=== PATIENT | male | born 1955 | race Caucasian/White ===

== ENCOUNTER → 2023-10-07 08:44 | Outpatient (REF) | payer OTHER, SELFPAY ==
[2023-10-07 12:55] LABS: % Basophils 1.1 % (0-2); % Eosinophils 5.6 % (0-6); % Immature Granulocytes 0.3 % (0-0.5); % Lymphocytes 23.9 % (20.5-51.1); % Monocytes 12.4 % (1.7-9.3); % Neutrophils 56.7 % (42.2-75.2); Absolute Basophils 0.1 10^3/uL (0-0.2); Absolute Eosinophils 0.4 10^3/uL (0-0.7); Absolute Lymphocytes 1.6 10^3/uL (1.2-3.4); Absolute Monocytes 0.8 10^3/uL (0.1-0.6); Absolute Neutrophils 3.8 10^3/uL (1.4-6.5); Hemoglobin 12.8 g/dL (13.0-18.0); Mean Corp Hgb Conc. 32.8 g/dL (33.0-37.0); Mean Corpuscular Volume 91.3 fL (80.0-94.0); Mean Platelet Volume 10.1 fL (7.4-10.4); Nucleated Red Blood Cells % 0 % (-); Platelet Count 301 10^3/uL (130-400); Red Blood Cell Count 4.27 10^6/uL (4.70-6.10); Red Cell Dist. Width 15.2 % (11.5-14.5); White Blood Cell Count 6.6 10^3/uL (4.8-10.8)
[2023-10-07 13:44] LABS: Erythrocyte Sed Rate 9 mm/hour (0-20)
[2023-10-07 13:49] LABS: ALT (SGPT) 24 U/L (0-50); AST (SGOT) 27 U/L (17-59); Albumin 4.2 g/dl (3.5-5.0); Alkaline Phosphatase 87 U/L (38-126); Blood Urea Nitrogen 26 mg/dl (9-20); Calcium 9.1 mg/dl (8.4-10.2); Carbon Dioxide 27 mmol/L (22-30); Chloride 105 mmol/L (98-107); Glucose 89 mg/dl (70-99); Potassium 4.9 mmol/L (3.5-5.1); Sodium 137 mmol/L (135-145); Total Bilirubin 0.5 mg/dl (0.2-1.3); Total Protein 6.9 g/dl (6.3-8.2); eGFR > 60.00
[2023-10-08 14:49] LABS: Rheumatoid Agglutinin Positive (<10 IU)
[2023-10-08 16:10] LABS: Rheumatoid Agg. Semi-quant 8 IU
[2023-10-09 14:46] LABS: Amphetamine, Urine Negative ng/mL (Cutoff 300); Barbiturates, Urine Negative ng/mL (Cutoff 200); Benzodiazepines, Urine Negative ng/mL (Cutoff 200); Buprenorphine, Urine Negative ng/mL (Cutoff 5); Carisoprodol, Urine Negative ng/mL (Cutoff 100); Cocaine, Urine Negative ng/mL (Cutoff 150); Creatinine, Urine 137.7 mg/dL (20.0-400.0); Ethyl Glucuronide, Urine Negative ng/mL (Cutoff 500); Fentanyl, Urine Negative ng/mL (Cutoff 1); Marijuana, Urine Negative ng/mL (Cutoff 50); Meperidine, Urine Negative ng/mL (Cutoff 200); Methadone, Urine Negative ng/mL (Cutoff 150); Opiates, Urine PresumptivePOS ng/mL (Cutoff 300); Oxycodone/Oxymorphone, Urine Negative ng/mL (Cutoff 100); PCP (Phencyclidine), Urine Negative ng/mL (Cutoff 25); Propoxyphene, Urine Negative ng/mL (Cutoff 300); Tapentadol, Urine Negative ng/mL (Cutoff 200); Tramadol, Urine Negative ng/mL (Cutoff 100); Zolpidem, Urine PresumptivePOS ng/mL (Cutoff 20)
[2023-10-10 03:54] LABS: CCP Antibody IgG/IgA >250 Units (0-19)
[2023-10-11 11:34] LABS: Zolpidem, Urine 34 ng/mL
[2023-10-11 11:43] LABS: 6-Acetylmorphine, Urine <10 ng/mL; Codeine, Urine <20 ng/mL; Hydrocodone, Urine 3802 ng/mL; Hydromorphone, Urine 41 ng/mL; Morphine, Urine <20 ng/mL; Norhydrocodone, Urine >4000 ng/mL; Noroxycodone, Urine <20 ng/mL; Noroxymorphone, Urine <20 ng/mL; Oxycodone, Urine <20 ng/mL; Oxymorphone, Urine <20 ng/mL
== END ==
LOC: HWLAB 08:44
PROVIDERS: ATTENDING PHYSICIAN Internal Medicine Rheumatology; FAMILY PHYSICIAN Family Medicine
DX: G89.4 Chronic pain syndrome (principal); I89.0 Lymphedema, not elsewhere classified; M06.80 Other specified rheumatoid arthritis, unspecified site; M06.9 Rheumatoid arthritis, unspecified; M51.36 Other intervertebral disc degeneration, lumbar region
CPT/HCPCS: 36415; 80053; 80307; 80361; 80365; 80368; 85025; 85652; 86140; 86200; 86430; 86431

== ENCOUNTER 2024-03-23 09:45 | Emergency (ER) | payer OTHER, SELFPAY ==
[2024-03-23 09:50] VITALS: BP 157/78
--- NOTE | 2024-03-23 10:21 | ED.GENMED ---
History of Present Illness
General
Chief Complaint: Musculo-Skeletal Complaint
Source: patient
Exam Limitations: none
Time Seen by Provider: 03/23/24 10:02
Nursing documentation reviewed up to this point in time: agreed with
History of Present Illness
History of Present Illness:
69-year-old male with past medical history of rheumatoid arthritis currently taking methotrexate and daily prednisone 4 mg, previous stroke asthma hypertension hyperlipidemia presenting to the emergency department today with concerns of ongoing
left-sided wrist discomfort and swelling over the past 2 weeks. He claims that he had a ground-level fall and hit his left wrist. He was seen at an urgent care and had x-rays 2 weeks ago and was diagnosed with a sprain was given a splint. He
claims that pain has been ongoing which prompted him to come to the ER. He has been taking Motrin at home without relief. Denies any chest pain shortness of breath fevers significant redness or warmth.
Past History
Past History
ED Past Medical History: Asthma, COPD, CVA, HTN, Hypercholesterolemia and Other (Rheumatoid arthritis, recurrent cellulitis, osteoarthritis, shingles, chronic back pain, migraines, Sleep apnea)
ED Past Surgical History: Appendectomy, Orthopedic (Carpal tunnel right) and Tonsilectomy
Social History
Tobacco: Former smoker
Alcohol: Occasional
Drug: None
Personal:
Living: with family (Lives with Girlfriend)
Employment: Employed
Family History
Family History: Other (reviewed and non-contributory)
Review of Systems
Review of Systems
Allergies reviewed?: Yes
All Other Systems: ROS reviewed and negative except as documented in HPI and ROS
Phy Exam
Physical Exam
Physical Exam:
GENERAL: Alert , in no apparent distress
EYE: pupils equal and reactive
NECK: Supple, no significant adenopathy.
ENT: o/p clr, mmm.
CARDIAC: Regular rate and rhythm .
LUNGS: Clear breath sounds bilaterally, no acute respiratory distress, no wheezes/rales/rhonchi
ABDOMEN: Soft, without focal tenderness, no r/g, no cvat
NEUROLOGICAL: Alert and oriented, no focal neuro deficits
SKIN: Warm and dry, skin intact.
MUSCULOSKELETAL: Mild swelling to the patient's left wrist mainly on the dorsal aspect of the distal ulnar region. Minimal tenderness with palpation throughout the hand and finger able to medical imaging technologist. Increased discomfort with sitting's test. No
significant redness or warmth is apparent. Does have good range of motion of the wrist but does have discomfort throughout the range of motion. No tenderness throughout the remainder of the forearm or elbow., well perfused.
PSYCH: Normal and appropriate interaction.
Course
Orders/Labs/Results
Orders:
Orders
03/23/24 10:11
CR Wrist - Left Min 3 Views Urgent
Comment:
Reason For Exam: wrist pain 2 weeks ago fall
03/23/24 10:19
Ketorolac [Toradol] 30 mg IM NOW STA
03/23/24 11:18
Prednisone [Deltasone] 50 mg PO NOW STA
Vital Signs
Initial and Last Documented VS:
Initial Vital Signs
Temp Pulse Resp BP Pulse Ox
97.7 F 71 20 157/78 97
03/23/24 09:50 03/23/24 09:50 03/23/24 09:50 03/23/24 09:50 03/23/24 09:50
Last Documented Vital Signs
Temp Pulse Resp BP Pulse Ox
97.7 F 71 20 157/78 97
03/23/24 09:50 03/23/24 09:50 03/23/24 09:50 03/23/24 09:50 03/23/24 09:50
MDM/Problems Addressed
MDM/Problems Addressed:
69-year-old male presenting to the emergency ongoing discomfort to the left wrist after falling and hitting his wrist 2 weeks ago. He had x-rays at an urgent care diagnosed with a sprain. He has been icing elevating and taking Motrin without
relief. Today he does have tenderness to the wrist and distal ulnar forearm. No tenderness to the anatomical snuffbox no tenderness about the hand or fingers. Able to medical imaging technologist does have good range of motion of the wrist septic arthritis very unlikely
without significant redness or warmth good range of motion as well as no systemic symptoms or significant worsening symptoms over the past 2 weeks. I x-ray with significant arthritis but no evidence of acute fracture. Patient was written for
steroid pack help with inflammatory possibility otherwise advised for close outpatient follow-up return precautions given.
*Critical Care Note
Total Time (30-74mins, 75-104mins- exclusive of procedures): Not Applicable
ED Attending Note
-
Portions of this chart may have been created with voice recognition software.� Occasional wrong word or��sound alike� substitutions may have occurred due to the inherent limitations of voice recognition software.
Discharge Plan
Departure
Patient Disposition: Home (Routine Discharge)
Date of Disposition: 03/23/24
Time of Disposition: 11:18
Patient with high blood pressure during this ER visit?: No
Condition: Good
Covid-19: Not Applicable
Discharge Problem:
Acute wrist pain
Instructions: Muscle and Bone Pain (DC)
Prescriptions:
New
prednisone 50 mg tablet
50 mg PO DAILY 4 Days Qty: 4 0RF
hydrocodone-acetaminophen 5-325 mg tablet
1 tab PO Q8H PRN (Reason: Pain) Qty: 7 0RF
No Action
folic acid 1 MG tablet
1 mg PO DAILY
zolpidem 10 MG tablet
10 mg PO HS
Patient Comments:
03/25/2023: last filled 02/23/23, 90 tabs for 90 days from [facility]
amlodipine 5 MG tablet
5 mg PO DAILY Qty: 30 3RF
diphenhydramine HCl [Banophen] 25 MG capsule
25 mg PO HSPRN PRN (Reason: bug bites)
prednisone 1 MG tablet
4 mg PO DAILY
Epidiolex 1 UNIT solution
1 unit inhalation BIDPRN PRN (Reason: back pain)
hydrocodone-acetaminophen 10-325 mg tablet
1 tab PO Q6H PRN (Reason: moderate pain)
Patient Comments:
03/25/2023: last filled 03/10/23, 120 tabs for 30 days from [facility]
losartan 100 mg tablet
100 mg PO DAILY
atorvastatin 40 MG tablet
40 mg PO DAILY
methotrexate sodium 2.5 MG tablet
2.5 mg PO SUWEFR
Rx Instructions:
after the course of antibiotics is done
white petrolatum [Hydrophor] 42 % Ointment
1 applic topical DAILY Qty: 454 0RF
Referrals:
Kenny Berumen MD [Family Provider] -
Activity Restrictions/Additional Instructions:
You came to the emergency department today with concerns of ongoing left-sided wrist discomfort. This could be an ongoing sprain or secondary to your rheumatoid arthritis. Please prednisone 50 mg once a day for the next 4 days and you can use the
stronger pain medication as needed. Return to the emergency department for any worsening, new or concerning symptoms. Please also seek physical therapy assessment.
Interventions
Interventions:
ED-Musculoskeletal Assessment Last Done: 03/23/24 11:12
Discharge Date and Time
Print Language: GUYANESE
[2024-03-23] MEDS: TORADOL 30 MG IM (10:28)
[2024-03-23] MEDS: DELTASONE 50 MG PO (11:24)
== END 2024-03-23 11:44 | disposition home or self-care (01) ==
LOC: EMR 09:45
PROVIDERS: EMERGENCY PHYSICIAN Emergency Medicine; FAMILY PHYSICIAN Family Medicine
DX: M25.532 Pain in left wrist (principal); J44.89 Other specified chronic obstructive pulmonary disease; I10 Essential (primary) hypertension; E78.00 Pure hypercholesterolemia, unspecified; G47.30 Sleep apnea, unspecified; M06.9 Rheumatoid arthritis, unspecified; Z79.631 Long term (current) use of antimetabolite agent; Z86.73 Personal history of transient ischemic attack (TIA), and cerebral infarction without residual deficits; Z87.891 Personal history of nicotine dependence; Z90.49 Acquired absence of other specified parts of digestive tract
CPT/HCPCS: 99283; 96372; 73110

== ENCOUNTER → 2024-05-03 07:54 | Outpatient (REF) | payer OTHER, SELFPAY ==
[2024-05-03 09:59] LABS: % Basophils 0.5 % (0-2); % Eosinophils 2.9 % (0-6); % Immature Granulocytes 0.3 % (0-0.5); % Lymphocytes 16.1 % (20.5-51.1); % Monocytes 11.7 % (1.7-9.3); % Neutrophils 68.5 % (42.2-75.2); Absolute Basophils 0.1 10^3/uL (0-0.2); Absolute Eosinophils 0.3 10^3/uL (0-0.7); Absolute Lymphocytes 1.5 10^3/uL (1.2-3.4); Absolute Monocytes 1.1 10^3/uL (0.1-0.6); Absolute Neutrophils 6.4 10^3/uL (1.4-6.5); Hematocrit 36.1 % (39.0-52.0); Hemoglobin 11.9 g/dL (13.0-18.0); Mean Corpuscular Hgb 29.4 pg (27.0-31.0); Mean Corpuscular Volume 89.1 fL (80.0-94.0); Mean Platelet Volume 9.6 fL (7.4-10.4); Nucleated Red Blood Cells % 0 % (-); Platelet Count 294 10^3/uL (130-400); Red Blood Cell Count 4.05 10^6/uL (4.70-6.10); Red Cell Dist. Width 14.4 % (11.5-14.5); White Blood Cell Count 9.4 10^3/uL (4.8-10.8)
[2024-05-03 10:50] LABS: ALT (SGPT) 20 U/L (0-50); AST (SGOT) 24 U/L (17-59); Alkaline Phosphatase 85 U/L (38-126); Blood Urea Nitrogen 24 mg/dl (9-20); Calcium 9.2 mg/dl (8.4-10.2); Carbon Dioxide 25 mmol/L (22-30); Chloride 105 mmol/L (98-107); Glucose 96 mg/dl (70-99); HDL Cholesterol 66 mg/dl; LDL Cholesterol, Calculated 60 mg/dl; Potassium 4.4 mmol/L (3.5-5.1); Sodium 140 mmol/L (135-145); Total Bilirubin 0.6 mg/dl (0.2-1.3); Total Cholesterol 137 mg/dl (50-199); Total Protein 6.6 g/dl (6.3-8.2); Triglyceride 55 mg/dl (10-149); Very Low Density Lipoprotein 11 mg/dl (0-30); eGFR > 60.00
== END ==
LOC: HWLAB 07:54
PROVIDERS: ATTENDING PHYSICIAN Physician Assistant Medical; FAMILY PHYSICIAN Physician Assistant
DX: Z12.5 Encounter for screening for malignant neoplasm of prostate (principal); E78.5 Hyperlipidemia, unspecified; I10 Essential (primary) hypertension
CPT/HCPCS: 36415; 80053; 80061; 85025; G0103

== ENCOUNTER → 2024-05-09 11:26 | Outpatient (REF) | payer OTHER, SELFPAY ==
[2024-05-09 15:40] LABS: % Basophils 0.3 % (0-2); % Eosinophils 1.3 % (0-6); % Immature Granulocytes 0.4 % (0-0.5); % Lymphocytes 11.1 % (20.5-51.1); % Monocytes 8.5 % (1.7-9.3); % Neutrophils 78.4 % (42.2-75.2); Absolute Eosinophils 0.1 10^3/uL (0-0.7); Absolute Lymphocytes 1.1 10^3/uL (1.2-3.4); Absolute Monocytes 0.8 10^3/uL (0.1-0.6); Absolute Neutrophils 7.6 10^3/uL (1.4-6.5); Hematocrit 37.7 % (39.0-52.0); Hemoglobin 12.4 g/dL (13.0-18.0); Mean Corp Hgb Conc. 32.9 g/dL (33.0-37.0); Mean Corpuscular Hgb 29.3 pg (27.0-31.0); Mean Corpuscular Volume 89.1 fL (80.0-94.0); Mean Platelet Volume 9.7 fL (7.4-10.4); Nucleated Red Blood Cells % 0 % (-); Platelet Count 310 10^3/uL (130-400); Red Blood Cell Count 4.23 10^6/uL (4.70-6.10); Red Cell Dist. Width 14.6 % (11.5-14.5); White Blood Cell Count 9.7 10^3/uL (4.8-10.8)
[2024-05-09 15:47] LABS: Iron 77 ug/dl (49-181)
[2024-05-09 15:57] LABS: Percent Saturation 26 % (20-50); Total Iron Binding Capacity 292 ug/dl (261-462)
[2024-05-09 16:23] LABS: Ferritin 87.9 ng/ml (17.9-464.0)
[2024-05-09 16:54] LABS: Folate > 20.0 ng/ml (2.76-20); Vitamin B12 295 pg/ml (239-931)
== END ==
LOC: HWLAB 11:26
PROVIDERS: ATTENDING PHYSICIAN Physician Assistant
DX: D64.9 Anemia, unspecified (principal)
CPT/HCPCS: 36415; 82607; 82728; 82746; 83540; 83550; 85025

== ENCOUNTER → 2024-06-02 10:45 | Outpatient (REF) | payer OTHER, SELFPAY ==
[2024-06-02 16:34] LABS: ALT (SGPT) 23 U/L (0-50); AST (SGOT) 25 U/L (17-59); Albumin 4.2 g/dl (3.5-5.0); Alkaline Phosphatase 83 U/L (38-126); Blood Urea Nitrogen 26 mg/dl (9-20); Calcium 9.2 mg/dl (8.4-10.2); Carbon Dioxide 27 mmol/L (22-30); Chloride 104 mmol/L (98-107); Glucose 97 mg/dl (70-99); Potassium 4.5 mmol/L (3.5-5.1); Sodium 140 mmol/L (135-145); Total Bilirubin 0.7 mg/dl (0.2-1.3); Total Protein 6.8 g/dl (6.3-8.2); eGFR > 60.00
[2024-06-02 16:40] LABS: % Basophils 0.8 % (0-2); % Eosinophils 3.2 % (0-6); % Immature Granulocytes 0.2 % (0-0.5); % Lymphocytes 19.5 % (20.5-51.1); % Monocytes 9.6 % (1.7-9.3); % Neutrophils 66.7 % (42.2-75.2); Absolute Basophils 0.1 10^3/uL (0-0.2); Absolute Eosinophils 0.3 10^3/uL (0-0.7); Absolute Lymphocytes 1.8 10^3/uL (1.2-3.4); Absolute Monocytes 0.9 10^3/uL (0.1-0.6); Absolute Neutrophils 6.2 10^3/uL (1.4-6.5); Hematocrit 38.9 % (39.0-52.0); Hemoglobin 13.3 g/dL (13.0-18.0); Mean Corp Hgb Conc. 34.2 g/dL (33.0-37.0); Mean Corpuscular Hgb 31.5 pg (27.0-31.0); Mean Corpuscular Volume 92.2 fL (80.0-94.0); Mean Platelet Volume 10.2 fL (7.4-10.4); Nucleated Red Blood Cells % 0 % (-); Platelet Count 304 10^3/uL (130-400); Red Blood Cell Count 4.22 10^6/uL (4.70-6.10); Red Cell Dist. Width 14.9 % (11.5-14.5); White Blood Cell Count 9.2 10^3/uL (4.8-10.8)
[2024-06-02 16:44] LABS: Amphetamines Negative (Negative); Barbiturates Negative (Negative); Benzodiazepines Negative (Negative); Buprenorphine Negative (Negative); Cocaine Negative (Negative); Marijuana Negative (Negative); Methadone Negative (Negative); Methamphetamines Negative (Negative); Opiates Positive (Negative); Phencyclidine Negative (Negative); Tricyclic Antidepressants Negative (Negative)
[2024-06-02 17:05] LABS: Hepatitis B Surface Antigen Negative (Negative)
[2024-06-02 17:07] LABS: Fentanyl, Urine Negative (Negative)
[2024-06-02 17:13] LABS: HIV Combo Negative (Negative)
[2024-06-02 17:23] LABS: Hepatitis B Core Ab, Total Reactive (Negative); Hepatitis C Antibody Negative (Negative)
[2024-06-02 17:29] LABS: Erythrocyte Sed Rate 19 mm/hour (0-20)
[2024-06-02 18:23] LABS: Hepatitis B Surface Antibody Positive
[2024-06-03 11:58] LABS: Rheumatoid Agg. Semi-quant 128 IU; Rheumatoid Agglutinin Positive (<10 IU)
[2024-06-05 08:53] LABS: CCP Antibody IgG/IgA 133 Units (0-19)
== END ==
LOC: HWLAB 10:45
PROVIDERS: ATTENDING PHYSICIAN Internal Medicine; FAMILY PHYSICIAN Physician Assistant
DX: Z79.891 Long term (current) use of opiate analgesic (principal); Z79.899 Other long term (current) drug therapy; Z79.620 Long term (current) use of immunosuppressive biologic; M06.89 Other specified rheumatoid arthritis, multiple sites; M06.8 Other specified rheumatoid arthritis
CPT/HCPCS: 36415; 73110; 73130; 73560; 73565; 73630; 80053; 80306; 80307; 85025; 85652; 86140; 86200; 86430; 86431; 86704; 86706; 86803; 87340; 87389

== ENCOUNTER → 2024-06-03 09:14 | Outpatient (REF) | payer OTHER, SELFPAY ==
[2024-06-05 07:55] LABS: Quantiferon Mitogen minus NIL 9.93 IU/mL; Quantiferon NIL 0.07 IU/mL; Quantiferon Plus TB2 minus NIL 0.01 IU/mL (<=0.34); Quantiferon TB Gold Plus Negative (Negative)
== END ==
LOC: HWLAB 09:14
PROVIDERS: ATTENDING PHYSICIAN Internal Medicine; FAMILY PHYSICIAN Physician Assistant
DX: M06.89 Other specified rheumatoid arthritis, multiple sites (principal); Z79.899 Other long term (current) drug therapy; Z79.620 Long term (current) use of immunosuppressive biologic; Z79.891 Long term (current) use of opiate analgesic
CPT/HCPCS: 36415; 86480

== ENCOUNTER → 2024-06-09 07:46 | Outpatient (REF) | payer OTHER, SELFPAY ==
[2024-06-09 09:25] LABS: % Basophils 0.9 % (0-2); % Immature Granulocytes 0.4 % (0-0.5); % Lymphocytes 18.5 % (20.5-51.1); % Monocytes 11.6 % (1.7-9.3); % Neutrophils 64.6 % (42.2-75.2); Absolute Basophils 0.1 10^3/uL (0-0.2); Absolute Eosinophils 0.3 10^3/uL (0-0.7); Absolute Lymphocytes 1.5 10^3/uL (1.2-3.4); Absolute Neutrophils 5.3 10^3/uL (1.4-6.5); Hematocrit 38.6 % (39.0-52.0); Hemoglobin 12.7 g/dL (13.0-18.0); Mean Corp Hgb Conc. 32.9 g/dL (33.0-37.0); Mean Corpuscular Hgb 29.5 pg (27.0-31.0); Mean Corpuscular Volume 89.8 fL (80.0-94.0); Mean Platelet Volume 9.5 fL (7.4-10.4); Nucleated Red Blood Cells % 0 % (-); Platelet Count 267 10^3/uL (130-400); Red Cell Dist. Width 15.1 % (11.5-14.5); White Blood Cell Count 8.2 10^3/uL (4.8-10.8)
[2024-06-09 11:37] LABS: Iron 95 ug/dl (49-181)
[2024-06-09 11:46] LABS: Folate 15.3 ng/ml (2.76-20); Vitamin B12 406 pg/ml (239-931)
[2024-06-09 11:47] LABS: Percent Saturation 32 % (20-50); Total Iron Binding Capacity 292 ug/dl (261-462)
== END ==
LOC: HWLAB 07:46
PROVIDERS: ATTENDING PHYSICIAN Physician Assistant
DX: D64.9 Anemia, unspecified (principal)
CPT/HCPCS: 36415; 82607; 82728; 82746; 83540; 83550; 85025

== ENCOUNTER → 2024-09-09 08:03 | Outpatient (REF) | payer OTHER, SELFPAY ==
[2024-09-09 09:55] LABS: % Basophils 0.8 % (0-2); % Eosinophils 2.5 % (0-6); % Immature Granulocytes 0.3 % (0-0.5); % Lymphocytes 24.6 % (20.5-51.1); % Monocytes 5.6 % (1.7-9.3); % Neutrophils 66.2 % (42.2-75.2); Absolute Basophils 0.1 10^3/uL (0-0.2); Absolute Eosinophils 0.2 10^3/uL (0-0.7); Absolute Monocytes 0.5 10^3/uL (0.1-0.6); Absolute Neutrophils 5.3 10^3/uL (1.4-6.5); Hematocrit 37.3 % (39.0-52.0); Hemoglobin 12.3 g/dL (13.0-18.0); Mean Corpuscular Hgb 31.1 pg (27.0-31.0); Mean Corpuscular Volume 94.2 fL (80.0-94.0); Mean Platelet Volume 9.8 fL (7.4-10.4); Nucleated Red Blood Cells % 0 % (-); Platelet Count 270 10^3/uL (130-400); Red Blood Cell Count 3.96 10^6/uL (4.70-6.10)
[2024-09-09 10:04] LABS: ALT (SGPT) 26 U/L (0-50); AST (SGOT) 27 U/L (17-59); Albumin 4.3 g/dl (3.5-5.0); Alkaline Phosphatase 87 U/L (38-126); Blood Urea Nitrogen 27 mg/dl (9-20); Calcium 9.3 mg/dl (8.4-10.2); Carbon Dioxide 26 mmol/L (22-30); Chloride 104 mmol/L (98-107); Glucose 91 mg/dl (70-99); Potassium 4.6 mmol/L (3.5-5.1); Sodium 137 mmol/L (135-145); Total Bilirubin 1.3 mg/dl (0.2-1.3); Total Protein 6.6 g/dl (6.3-8.2); eGFR > 60.00
[2024-09-09 10:23] LABS: Vitamin D, 25-OH*** < 12.8 ng/mL (30-80)
[2024-09-09 11:19] LABS: Erythrocyte Sed Rate 80 mm/hour (0-20)
== END ==
LOC: HWLAB 08:03
PROVIDERS: ATTENDING PHYSICIAN Internal Medicine; FAMILY PHYSICIAN Physician Assistant
DX: Z79.899 Other long term (current) drug therapy (principal); E55.9 Vitamin D deficiency, unspecified; M06.89 Other specified rheumatoid arthritis, multiple sites
CPT/HCPCS: 36415; 80053; 82306; 85025; 85652; 86140

== ENCOUNTER → 2024-09-13 09:58 | Outpatient (REF) | payer OTHER, SELFPAY | LOC: HWRAD 09:58 | PROVIDERS: ATTENDING PHYSICIAN Internal Medicine; FAMILY PHYSICIAN Physician Assistant | DX: M81.0 Age-related osteoporosis without current pathological fracture (principal); Z87.891 Personal history of nicotine dependence | CPT/HCPCS: 71271; 77080 ==

== ENCOUNTER → 2025-02-15 10:46 | Outpatient (REF) | payer OTHER, SELFPAY ==
[2025-02-15 15:51] LABS: Hematocrit 40.2 % (39.0-52.0); Hemoglobin 13.0 g/dL (13.0-18.0); Mean Corp Hgb Conc. 32.3 g/dL (33.0-37.0); Mean Corpuscular Volume 95.3 fL (80.0-94.0); Nucleated Red Blood Cells % 0 % (-); Platelet Count 261 10^3/uL (130-400); Red Cell Dist. Width 14.6 % (11.5-14.5)
[2025-02-15 16:00] LABS: ALT (SGPT) 20 U/L (0-50); AST (SGOT) 23 U/L (17-59); Albumin 4.3 g/dl (3.5-5.0); Alkaline Phosphatase 73 U/L (38-126); Blood Urea Nitrogen 31 mg/dl (9-20); Calcium 9.4 mg/dl (8.4-10.2); Carbon Dioxide 29 mmol/L (22-30); Chloride 107 mmol/L (98-107); Glucose 107 mg/dl (70-99); Potassium 4.2 mmol/L (3.5-5.1); Sodium 141 mmol/L (135-145); Total Protein 7.0 g/dl (6.3-8.2); eGFR > 60.00
[2025-02-15 16:04] LABS: C-Reactive Protein 7.80 mg/L (0.0-10.00)
[2025-02-15 16:07] LABS: INR 1.01; PT 13.8 Sec (11.4-14.6)
[2025-02-15 16:08] LABS: APTT 30.8 Sec (23.4-35.0)
[2025-02-15 16:20] LABS: Vitamin D, 25-OH*** 24.4 ng/mL (30-80)
== END ==
LOC: HWLAB 10:46
PROVIDERS: ATTENDING PHYSICIAN Internal Medicine; FAMILY PHYSICIAN Physician Assistant
DX: T14.8XXA Other injury of unspecified body region, initial encounter (principal); M06.89 Other specified rheumatoid arthritis, multiple sites; Z79.899 Other long term (current) drug therapy; E55.9 Vitamin D deficiency, unspecified; M05.9 Rheumatoid arthritis with rheumatoid factor, unspecified
CPT/HCPCS: 36415; 80053; 82306; 85025; 85610; 85652; 85730; 86140

== ENCOUNTER → 2025-05-17 09:23 | Outpatient (REF) | payer OTHER, SELFPAY ==
[2025-05-17 12:22] LABS: Hematocrit 39.2 % (39.0-52.0); Hemoglobin 12.7 g/dL (13.0-18.0); Mean Corp Hgb Conc. 32.4 g/dL (33.0-37.0); Mean Corpuscular Volume 93.6 fL (80.0-94.0); Nucleated Red Blood Cells % 0 % (-); Platelet Count 257 10^3/uL (130-400); Red Cell Dist. Width 15.5 % (11.5-14.5)
[2025-05-17 12:32] LABS: ALT (SGPT) 18 U/L (0-50); AST (SGOT) 20 U/L (17-59); Albumin 4.1 g/dl (3.5-5.0); Alkaline Phosphatase 84 U/L (38-126); Blood Urea Nitrogen 23 mg/dl (9-20); Calcium 9.1 mg/dl (8.4-10.2); Carbon Dioxide 28 mmol/L (22-30); Chloride 107 mmol/L (98-107); Glucose 96 mg/dl (70-99); HDL Cholesterol 63 mg/dl; Iron 171 ug/dl (49-181); LDL Cholesterol, Calculated 61 mg/dl; Potassium 4.3 mmol/L (3.5-5.1); Sodium 140 mmol/L (135-145); Total Protein 6.7 g/dl (6.3-8.2); Very Low Density Lipoprotein 13 mg/dl (0-30); eGFR > 60.00
[2025-05-17 12:42] LABS: Total Iron Binding Capacity 292 ug/dl (261-462)
[2025-05-17 12:51] LABS: Vitamin D, 25-OH*** 28.7 ng/mL (30-80)
[2025-05-17 13:04] LABS: PSA, Total - Screen 1.66 ng/ml (0.0-4.0)
[2025-05-17 13:08] LABS: Ferritin 130.0 ng/ml (17.9-464.0)
[2025-05-17 13:40] LABS: Folate > 20.0 ng/ml (2.76-20); Vitamin B12 295 pg/ml (239-931)
[2025-05-17 14:23] LABS: Glycohemoglobin (HgbA1c) 5.3 % (4.0-5.9)
== END ==
LOC: HWLAB 09:23
PROVIDERS: ATTENDING PHYSICIAN Internal Medicine; FAMILY PHYSICIAN Physician Assistant Medical
DX: M06.89 Other specified rheumatoid arthritis, multiple sites (principal); E55.9 Vitamin D deficiency, unspecified; Z00.01 Encounter for general adult medical examination with abnormal findings; I10 Essential (primary) hypertension; M06.9 Rheumatoid arthritis, unspecified; E78.5 Hyperlipidemia, unspecified; G47.01 Insomnia due to medical condition; R73.01 Impaired fasting glucose; E61.1 Iron deficiency
CPT/HCPCS: 36415; 80053; 80061; 82306; 82607; 82728; 82746; 83036; 83540; 83550; 84443; 85025; G0103

== ENCOUNTER → 2025-07-25 09:10 | Outpatient (REF) | payer OTHER, SELFPAY ==
[2025-07-25 11:49] LABS: Hematocrit 39.1 % (39.0-52.0); Hemoglobin 12.6 g/dL (13.0-18.0); Mean Corp Hgb Conc. 32.2 g/dL (33.0-37.0); Mean Corpuscular Volume 96.8 fL (80.0-94.0); Nucleated Red Blood Cells % 0 % (-); Platelet Count 247 10^3/uL (130-400); Red Cell Dist. Width 16.0 % (11.5-14.5)
[2025-07-25 12:01] LABS: Urine Character Clear (Clear)
[2025-07-25 12:23] LABS: C-Reactive Protein 8.00 mg/L (0.0-10.00)
[2025-07-25 12:24] LABS: ALT (SGPT) 17 U/L (0-50); AST (SGOT) 23 U/L (17-59); Albumin 4.1 g/dl (3.5-5.0); Alkaline Phosphatase 74 U/L (38-126); Blood Urea Nitrogen 19 mg/dl (9-20); Calcium 9.1 mg/dl (8.4-10.2); Carbon Dioxide 28 mmol/L (22-30); Chloride 108 mmol/L (98-107); Glucose 108 mg/dl (70-99); Potassium 4.4 mmol/L (3.5-5.1); Sodium 139 mmol/L (135-145); Total Protein 6.8 g/dl (6.3-8.2); Uric Acid 5.4 mg/dl (3.5-8.5); eGFR > 60.00
[2025-07-25 12:44] LABS: Vitamin D, 25-OH*** 20.9 ng/mL (30-80)
[2025-07-25 12:58] LABS: Ferritin 93.4 ng/ml (17.9-464.0)
[2025-07-25 13:30] LABS: Folate > 20.0 ng/ml (2.76-20); Vitamin B12 298 pg/ml (239-931)
[2025-07-25 15:05] LABS: Hepatitis B Surface Antigen Negative (Negative)
[2025-07-25 15:23] LABS: Hepatitis C Antibody Negative (Negative)
[2025-07-25 15:28] LABS: Urine Red Blood Cell 0-2 /HPF (0-2); Urine Squamous Cell 0-2 /LPF (Few); Urine Urothelial Cell 0-2 /LPF (FEW); Urine White Cell 0-2 /HPF (0-5)
[2025-07-26 16:55] LABS: Thyroglobulin 12.2 ng/mL (1.3-31.8); Thyroglobulin Antibodies <1.5 IU/mL (0.0-4.0)
[2025-07-27 01:16] LABS: ANA, IgG Reflex to HEp-2 None Detected (None Detected)
[2025-07-27 21:10] LABS: Serine Protease-3, IgG 0 AU/mL (0-19)
[2025-07-27 21:15] LABS: HLA-B27 Negative (Negative)
[2025-07-28 06:54] LABS: Histone Antibody, IgG 0.2 Units (0.0-0.9)
== END ==
LOC: HWLAB 09:10
PROVIDERS: ATTENDING PHYSICIAN Internal Medicine; FAMILY PHYSICIAN Physician Assistant Medical
DX: E55.9 Vitamin D deficiency, unspecified (principal); M10.9 Gout, unspecified; M25.50 Pain in unspecified joint; E06.3 Autoimmune thyroiditis; A69.20 Lyme disease, unspecified; M06.9 Rheumatoid arthritis, unspecified; K90.0 Celiac disease; K75.9 Inflammatory liver disease, unspecified; M60.9 Myositis, unspecified; M35.9 Systemic involvement of connective tissue, unspecified; E07.9 Disorder of thyroid, unspecified; G62.9 Polyneuropathy, unspecified; M06.4 Inflammatory polyarthropathy; D47.2 Monoclonal gammopathy; M32.9 Systemic lupus erythematosus, unspecified; M34.9 Systemic sclerosis, unspecified; D86.9 Sarcoidosis, unspecified; Z51.81 Encounter for therapeutic drug level monitoring; Z15.89 Genetic susceptibility to other disease; L04.9 Acute lymphadenitis, unspecified; D68.61 Antiphospholipid syndrome; K75.4 Autoimmune hepatitis; M45.9 Ankylosing spondylitis of unspecified sites in spine; M06.1 Adult-onset Still's disease; D89.1 Cryoglobulinemia; Z22.7 Latent tuberculosis; I77.82 Antineutrophilic cytoplasmic antibody [ANCA] vasculitis; D89.84 IgG4-related disease
CPT/HCPCS: 36415; 80053; 81003; 81015; 82164; 82306; 82550; 82570; 82607; 82652; 82728; 82746; 82784; 82787; 83516; 83521; 84155; 84156; 84165; 84432; 84443; 84550; 85025; 85652; 86038; 86140; 86231; 86334; 86430; 86480; 86618; 86706; 86800; 86803; 86812; 87340